=== PATIENT | female | born 1965 | race Caucasian/White ===

== ENCOUNTER 2016-04-25 07:28 | Emergency (ER) | payer OTHER ==
[~2016-04-25] VITALS: Ht 160 cm; Wt 61.7 kg
[~2016-04-25 07:28] MED LIST: HYDR-971 PO; LOSA50TA6 PO; PHEN15CA PO; TRAM50TA PO
[2016-04-25 08:00] VITALS: BP 132/73
[2016-04-25] MEDS ORDERED: KETOROLAC TROMETHAMINE 30 MG/ML SYRINGE. IV ONE (08:15)
[2016-04-25] MEDS ORDERED: IV NORMAL SALINE 1000ML BAG 1,000 ML IV ONE (08:15)
[2016-04-25] MEDS ORDERED: IOHEXOL 300 MG/ML 75 ML VIAL IV ONE (09:00)
--- NOTE | 2016-04-25 09:56 | RAD ---
Indication persistent left-sided chest and upper abdominal pain secondary to a fall 3 days earlier. Axial images through the chest and abdomen were obtained. IV contrast, 75 cc of Omnipaque 300 was administered intravenously. The pelvis was not imaged No oral contrast was administered. No prior CT imaging of the patient is available. CT chest: Findings. A definite, significant, soft tissue injury in the chest wall is not seen. Bilateral breast implants are noted. There are occasional nodules seen associated with the right lobe of the thyroid with a more dominant 2 cm nodule in the right lobe. Nonemergent thyroid ultrasound examination should be considered. The thoracic aorta appears unremarkable. The mediastinum appears normal. Calcified right hilar lymph nodes are noted. There is a slightly distracted left lower, lateral, rib fracture (probably the ninth rib). This fracture appears recent or acute. There is no pneumothorax. There is no pleural fluid. Acute parenchymal infiltrate in either lung is not seen. A dominant soft tissue mass in either lung is not seen. CT abdomen: Findings The liver and spleen appear unremarkable. The adrenal glands appear unremarkable. There are minute bilateral renal calculi. No pancreatic abnormality is seen. Acute finding in the abdomen is not apparent. IMPRESSION: Fractured left lateral (probably the ninth) rib. Thyroid nodules. Nonemergent thyroid ultrasound should be considered. Unremarkable CT imaging of the abdomen PQRS Compliance Statement: One or more of the following individualized dose reduction techniques were utilized for this examination: 1. Automated exposure control 2. Adjustment of the mA and/or kV according to patient size 3. Use of iterative reconstruction technique
[2016-04-25] MEDS ORDERED: HYDR-971 PO (10:05)
--- NOTE | 2016-04-25 10:06 | PHYS DOC ---
Past Medical History Past Medical History: Hypertension Past Surgical History: Other Additional Past Surgical Histo: carpal tunnel right wrist Alcohol Use: Occasionally Drug Use: None Adult General Chief Complaint Chief Complaint: BACK PAIN OR INJURY HPI HPI 50-year-old female who actually works at [employer] presents with left flank pain after a fall a few days ago. She states she tripped over a cat and fell against a brass knob on a dresser. Since that time she has had pain with deep inspiration pain with certain movements. She has had some shortness of breath secondary to the pain. She denies any fever chills sweats or hemoptysis. She states she did have an x-ray performed which did not show any fractured ribs.] Review of Systems Review of Systems Constitutional: Denies fever or chills [] Eyes: Denies change in visual acuity, redness, or eye pain [] HENT: Denies nasal congestion or sore throat [] Respiratory: Denies cough or shortness of breath [] Cardiovascular: No additional information not addressed in HPI [] GI: Denies abdominal pain, nausea, vomiting, bloody stools or diarrhea [] : Denies dysuria or hematuria [] Musculoskeletal: Denies back pain or joint pain [] Integument: Denies rash or skin lesions [] Neurologic: Denies headache, focal weakness or sensory changes [] Endocrine: Denies polyuria or polydipsia [] Current Medications Current Medications Current Medications Medications (Trade) Dose Ordered Sig/Mari Start Time Stop Time Status Last Admin Dose Admin Iohexol (Omnipaque 300 Mg/ml) 75 ml 1X ONCE 04/25/16 09:00 04/25/16 09:14 DC 04/25/16 09:19 75 ML Ketorolac Tromethamine 30 mg 30 mg 1X ONCE 04/25/16 08:15 04/25/16 08:17 DC 04/25/16 09:02 30 MG Sodium Chloride (Iv Sodium Chloride 0.9% 1000ml Bag) 1,000 ml @ 1,000 mls/hr 1X ONCE 04/25/16 08:15 04/25/16 09:14 DC 04/25/16 09:02 1,000 MLS/HR Allergies Allergies Allergies Coded Allergies Type Severity Reaction Last Updated Verified erythromycin base Allergy Intermediate Swelling 11/19/13 Yes Physical Exam Physical Exam Constitutional: Well developed, well nourished, no acute distress, non-toxic appearance. [] HENT: Normocephalic, atraumatic, bilateral external ears normal, oropharynx moist, no oral exudates, nose normal. [] Eyes: PERRLA, EOMI, conjunctiva normal, no discharge. [] Neck: Normal range of motion, no tenderness, supple, no stridor. [] Cardiovascular:Heart rate regular rhythm, no murmur [] Lungs & Thorax: Bilateral breath sounds clear to auscultation pain to palpable left posterior chest with some crepitus over the ninth or 10th rib [] Abdomen: Bowel sounds normal, soft, no tenderness, no masses, no pulsatile masses. [] Skin: Warm, dry, no erythema, no rash. [] Back: No tenderness, no CVA tenderness. [] Extremities: No tenderness, no cyanosis, no clubbing, ROM intact, no edema. [] Neurologic: Alert and oriented X 3, normal motor function, normal sensory function, no focal deficits noted. [] Psychologic: Affect normal, judgement normal, mood normal. [] Current Patient Data Vital Signs Vital Signs Date Time Temp Pulse Resp B/P Pulse Ox O2 Delivery O2 Flow Rate FiO2 04/25/16 08:00 97.6 79 18 132/73 100 Room Air 97.6 EKG EKG [] Radiology/Procedures Radiology/Procedures [] Impressions: PROCEDURE: CHEST ABDOMEN W/CONTRAST Indication persistent left-sided chest and upper abdominal pain secondary to a fall 3 days earlier. Axial images through the chest and abdomen were obtained. IV contrast, 75 cc of Omnipaque 300 was administered intravenously. The pelvis was not imaged No oral contrast was administered. No prior CT imaging of the patient is available. CT chest: Findings. A definite, significant, soft tissue injury in the chest wall is not seen. Bilateral breast implants are noted. There are occasional nodules seen associated with the right lobe of the thyroid with a more dominant 2 cm nodule in the right lobe. Nonemergent thyroid ultrasound examination should be considered. The thoracic aorta appears unremarkable. The mediastinum appears normal. Calcified right hilar lymph nodes are noted. There is a slightly distracted left lower, lateral, rib fracture (probably the ninth rib). This fracture appears recent or acute. There is no pneumothorax. There is no pleural fluid. Acute parenchymal infiltrate in either lung is not seen. A dominant soft tissue mass in either lung is not seen. CT abdomen: Findings The liver and spleen appear unremarkable. The adrenal glands appear unremarkable. There are minute bilateral renal calculi. No pancreatic abnormality is seen. Acute finding in the abdomen is not apparent. IMPRESSION: Fractured left lateral (probably the ninth) rib. Thyroid nodules. Nonemergent thyroid ultrasound should be considered. Unremarkable CT imaging of the abdomen Course & Med Decision Making Course & Med Decision Making Pertinent Labs and Imaging studies reviewed. (See chart for details) [ED course: Evaluation reveals 50-year-old female with left posterior chest and upper abdomen pain. She was CT scan of the abdomen and chest which revealed a ninth rib fracture. She was given IV fluids and Toradol during her stay in the [facility] from which did help alleviate her symptoms. We'll send her home with rib fracture precautions and a prescription for Elkins to take as needed.] Dragon Disclaimer Dragon Disclaimer This electronic medical record was generated, in whole or in part, using a voice recognition dictation system. Departure Departure Impression: Primary Impression: Left rib fracture Disposition: 01 HOME, SELF-CARE Condition: IMPROVED Referrals: NO PCP (PCP) Patient Instructions: Rib Fracture Additional Instructions: Thank you for allowing us to participate in your care today. Followup with your primary care physician in 3 days if your symptoms do not improve. Return to the emergency department you have any new or concerning findings. This should be evaluated by the primary care physician and any necessary consulting services for continued management within a few days after discharge. Return to emergency room if you have any new or concerning symptoms including but not limited to fever, chills, nausea, vomiting, intractable pain, any new rashes, chest pain, shortness of air, uncontrolled bleeding, difficulty breathing, and/or vision loss. You may have been prescribed medication that can change in your level of thinking and ability to operate machinery. These medications include hydrocodone and Ativan. Also, Benadryl has been known to do this as well. Be sure to check with your pharmacist and ask if the medications you've prescribed can affect your level of consciousness. I recommend not operating heavy machinery or driving while on medication such as these. Scripts Hydrocodone/Apap 5-325 (Elkins 5-325 Tablet)1 Each Tablet1 Tab PO PRN Q6HRS PRN PAIN #20 TAB Prov:HERMINIA CUELLAR DO 04/25/16 Problem Qualifiers Primary Impression: Left rib fracture Encounter type: subsequent encounter Rib fracture type: single rib Fracture type: closed Fracture healing: with routine healing Qualified Code : S22.32XD - Fracture of one rib, left side, subsequent encounter for fracture with routine healing HERMINIA CUELLAR DO Apr 25, 2016 10:06
== END 2016-04-25 10:23 | disposition home or self-care (01) ==
LOC: ER 07:28
DX: S22.32XD Fracture of one rib, left side, subsequent encounter for fracture with routine healing (principal); I10 Essential (primary) hypertension; Z88.1 Allergy status to other antibiotic agents; W01.0XXA Fall on same level from slipping, tripping and stumbling without subsequent striking against object, initial encounter; Y93.89 Activity, other specified; Y92.89 Other specified places as the place of occurrence of the external cause; Y99.8 Other external cause status
CPT/HCPCS: 71260; 74160; 96361; 96374; 99284; J1885; J7030; Q9967

== ENCOUNTER 2016-06-16 05:47 | Day surgery (SDC) | payer OTHER ==
[~2016-06-16] VITALS: Ht 162.6 cm; Wt 62.1 kg
[2016-06-16] MEDS ORDERED: CEFAZOLIN 1GM IVPB FOR OMNI 50 ML IV ONE ×2 (06:25→08:00)
[2016-06-16] MEDS ORDERED: HYDROMORPHONE 2 MG/ML VIAL. IV PRN (07:00)
[2016-06-16] MEDS ORDERED: LIDOCAINE 1% 1 ML SYRINGE. ID PRN (07:00)
[2016-06-16] MEDS ORDERED: PROCHLORPERAZINE 10 MG/2 ML VIAL. IV PRN (07:00)
[2016-06-16] MEDS ORDERED: FENTANYL PF 100 MCG/2 ML VIAL. IV PRN ×2 (07:00)
[2016-06-16] MEDS ORDERED: IV RINGERS,LACTATED 1000ML 1,000 ML IV SCH (07:00)
[2016-06-16] MEDS ORDERED: MORPHINE SULFATE 2 MG/ML DISP.SYRIN. IV PRN (07:00)
[2016-06-16] MEDS ORDERED: ONDANSETRON PF 4 MG/2 ML VIAL. IV PRN (07:00)
[2016-06-16] MEDS ORDERED: LIDOCAINE 1%/EPI 1:100,000 20 ML VIAL. ONE (07:08)
[2016-06-16] MEDS ORDERED: FERRIC SUBSULFATE 8 ML SOL.W.APPL TP ONE (07:09)
[2016-06-16] MEDS ORDERED: PROPOFOL 20 ML IV ONE (08:09)
[2016-06-16] MEDS ORDERED: DEXAMETHASONE SOD PHOS 20 MG/5 ML VIAL. ONE (08:09)
[2016-06-16] MEDS ORDERED: KETOROLAC 30 MG/ML SYRINGE FOR OR. INJ ONE (08:09)
[2016-06-16] MEDS ORDERED: LIDOCAINE 2% 100 MG/5 ML DISP.SYRIN. ONE (08:09)
[2016-06-16] MEDS ORDERED: SEVOFLURANE 16 TO 30 MINUTES. IH ONE (08:09)
[2016-06-16] MEDS ORDERED: ONDANSETRON PF 4 MG/2 ML VIAL. ONE (08:10)
--- NOTE | 2016-06-16 08:25 | PDOC ---
BRIEF OPERATIVE NOTE Pre-Op Diagnosis Moderate cervical dysplasia Post-Op Diagnosis Same Procedure Performed Cervical cone biopsy Surgeon Dr. Monahan Anesthesia Type: General Blood Loss 5 ml Specimens Obtained cervical cone Findings cervical dysplasia Complications none Additional Remarks pt.LACIE Freedman Jr, MD Jun 16, 2016 08:25
--- NOTE | 2016-06-16 08:26 | DISCH ---
DISCHARGE INSTRUCTIONS Condition on Discharge Condition on Discharge: Stable Activity After Discharge Activity Instructions for Disc: Resume previous activity Lifting Instructions after Dis: No heavy lifting Driving Instructions after Dis: Do not drive today Diet after Discharge Diet after Discharge: Regular Contacting the DRShilpa after DC Call your doctor for: Concerns you may have Follow-Up Follow up with: Dr. Monahan in 2 weeks. LACIE MONAHAN Jr, MD Jun 16, 2016 08:26
[2016-06-16 08:52] VITALS: BP 127/80
--- NOTE | 2016-06-16 09:21 | OP ---
DATE OF SURGERY: PREOPERATIVE DIAGNOSIS: Moderate cervical dysplasia. POSTOPERATIVE DIAGNOSIS: Moderate cervical dysplasia. PROCEDURE: Cervical cone biopsy. SURGEON: Brian Monahan M.D. ANESTHESIA: LMA. COMPLICATIONS: None. ESTIMATED BLOOD LOSS: 5 mL. FINDINGS: Cervical dysplasia. SUMMARY: A 50-year-old 1, para 1 with moderate cervical dysplasia, counseled on cervical cone biopsy, risks, benefits and expectations, and voiced clear understanding to proceed. DESCRIPTION OF PROCEDURE: The patient was taken to the surgery suite and placed in the dorsal lithotomy position. She was prepped with Betadine solution and draped in a sterile fashion. After adequate anesthesia, weighted speculum and curved Arverne were placed vaginally. Anterior lip of the cervix was grasped with a single-tooth tenaculum. A 1% lidocaine with epinephrine was injected in a circumferential manner. A 2-0 Vicryl suture was placed to stabilize the cervix at the 3 o'clock and 9 o'clock positions. Cervical cone biopsy was performed with the cold knife at 45-degree angle, removing the anterior and posterior lips of the cervix. The remaining cervical os was cauterized with Bovie cautery and Monsel solution was applied; therefore, the area was hemostatic. The weighted speculum and curved Arverne were removed. The patient tolerated the procedure well and was taken to recovery room in stable condition. Sponge and needle counts were correct x 3. BRIAN MONAHAN MD DR: CATIE/rere JOB#: [id number] / [id number]
--- NOTE | 2016-06-21 15:39 | PATHOLOGY ---
PATHOLOGY REPORT * * * * * * * * FINAL DIAGNOSIS: Uterine cervix, cervical cone biopsy: - Mild dysplasia with focal cellular changes suggestive of HPV effect (MARIELLE I). - Margins negative for MARIELLE. - Chronic cervicitis. - Focal fibrosis, remote hemorrhage, and foreign body giant cell reaction consistent with previous biopsy site. COMMENT: There is no high grade dysplasia or evidence of malignancy. The case is also examined by Dr. Zander Mcfadden, who concurs with the diagnosis. (JPM:csd:mgkaela d/t: 06/20/2016) REPORT ELECTRONICALLY SIGNED BY: Esteban Hutson M.D. DATE/TIME: 06/21/2016 15:39 * * * * * * * * GROSS PATHOLOGY: Received in formalin labeled "Mei Doty, cervical cone biopsy stitch at 12:00," is an intact LEEP specimen measuring 2.0 x 1.9 x 1.8 cm in greatest dimensions. The specimen is oriented with a suture marking the 12:00 position. The 0.4 cm cervical os is surrounded by pale-camacho to pink-camacho, slightly granular ectocervical mucosa. The endocervical margin is inked blue and the ectocervical margin is inked black. The specimen is divided into four quadrants in a clockwise fashion, sectioned, and entirely submitted as follows: A1 12 to 3:00 margin A2 3 to 6:00 margin A3 6 to 9:00 margin A4 9 to 12:00 margin. (KAH; 06/16/2016) INITIAL CPT CODE(S): A; 08727 Professional services performed [place] [address] Technical services performed by [facility] at [address] [place] [address] [address], [place] [address]. SPECIMEN(S) RECEIVED: A.Cervical cone biopsy stitch at 12 o'clock CLINICAL HISTORY: MARIELLE I, mod. dysplasia PATIENT: MEI DOTY /AGE: 406/27/1965 (Age: 50) PATIENT #: [id number] ALT CASE #: SPECIMEN COLLECTION DATE: 06/16/2016 SPECIMEN RECEIVED DATE: 06/16/2016 [facility] - [address] [place] [address] - PHONE: [phone] * * * END OF REPORT * * *
== END 2016-06-16 09:29 | disposition home or self-care (01) ==
LOC: SURG 05:47
PROVIDERS: ATTEND Obstetrics & Gynecology
DX: N87.1 Moderate cervical dysplasia (principal); I10 Essential (primary) hypertension; K21.9 Gastro-esophageal reflux disease without esophagitis; Z72.89 Other problems related to lifestyle; Z87.39 Personal history of other diseases of the musculoskeletal system and connective tissue
CPT/HCPCS: 57520; J0690; J1100; J1885; J2405; J2704; J3490

== ENCOUNTER → 2017-05-02 | Outpatient (CLI) | payer OTHER | END | disposition home or self-care (01) | LOC: KCIC MAMMO 14:31 | DX: Z12.31 Encounter for screening mammogram for malignant neoplasm of breast (principal); N64.89 Other specified disorders of breast | CPT/HCPCS: 77063; 77067 ==

== ENCOUNTER → 2017-05-08 | Outpatient (CLI) | payer OTHER | END | disposition home or self-care (01) | LOC: MAMMO 08:46 | DX: N63.20 Unspecified lump in the left breast, unspecified quadrant (principal) | CPT/HCPCS: 76641; 77065 ==

== ENCOUNTER → 2018-04-05 | Outpatient (CLI) | payer OTHER ==
[~2018-04-05] MED LIST changes: +HYDR-3164 PO; -HYDR-971 PO; +LOSA-73 PO; -LOSA50TA6 PO; -PHEN15CA PO; +PHEN15CA2 PO
--- NOTE | 2018-04-05 14:40 | RAD ---
DATE: 04/05/2018 EXAM: MAMMO DENI WANDA MINORAT HISTORY: Breast implants, right lateral breast pain COMPARISON: 05/08/2017, 05/02/2017 This study was interpreted with the benefit of Computerized Aided Detection (CAD). Breast Density: HETERO The breast parenchyma is heterogenously dense, which could reduce sensitivity of mammography. Breast parenchyma level C. FINDINGS: 2-D and 3-D tomosynthesis imaging was performed in CC and MLO projections. The bilateral breast implants appear unchanged. No new or enlarging breast densities are seen. Minimal benign type calcification is present. No suspicious microcalcifications have developed. Benign-appearing lymph node type densities are present in both axillary regions. Right breast ultrasound, 04/05/2018: A targeted ultrasound exam was performed of the lateral aspect of the right breast where the patient was experiencing pain. Normal heterogeneous fibroglandular shadows are present. No mass or abnormal fluid collection is seen. IMPRESSION: 1. Stable mammograms without evidence of malignancy. 2. The targeted ultrasound exam of the right breast revealed no abnormality. BI-RADS CATEGORY: 2 BENIGN FINDING(S) RECOMMENDED FOLLOW-UP: 12M 12 MONTH FOLLOW-UP PQRS compliance statement: Patient information was entered into a reminder system with a target due date for the next mammogram. Mammography is a sensitive method for finding small breast cancers, but it does not detect them all and is not a substitute for careful clinical examination. A negative mammogram does not negate a clinically suspicious finding and should not result in delay in biopsying a clinically suspicious abnormality. "Our facility is accredited by the [employer] Mammography Program."
== END | disposition home or self-care (01) ==
LOC: MAMMO 12:33
PROVIDERS: ATTEND Obstetrics & Gynecology
DX: N64.4 Mastodynia (principal)
CPT/HCPCS: 76641; 77066; G0279; 77062